=== PATIENT | male | born 1995 ===

== ENCOUNTER 2023-09-27 09:14 | Outpatient (OUT) | payer OTHER, SELFPAY ==
--- NOTE | 2023-09-27 09:17 | XR_ITS ---
The [address] [address] Patient Name: BERTRAM EVANS MRN: [id number] date: 1995 Sex: M Assigned Patient Location: [facility] Current Patient Location: [facility] Accession/Order Number: [id number] Exam Date: 09/27/2023 09:25 Report Date: 09/27/2023 21:39 At the request of: VAISHNAVI DAVIS Procedure: XR elbow LT min 3V EXAM: XR elbow LT min 3V HISTORY: Closed Nondisplaced Fracture Head Radius COMPARISON: 09-17-2023. FINDINGS: 4 radiographs of the left elbow were obtained. No acute fracture or dislocation. Patient is status post internal fixation of the proximal ulna and proximal radius. No evidence for hardware complication. Alignment is unchanged. No elbow joint effusion. Cast material overlies the left elbow and limits fine osseous detail. XR/XR elbow LT min 3V IMPRESSION: Status post internal fixation of the proximal ulna and proximal radius. No evidence for hardware complication. Electronically authenticated by: RADHIKA BANERJEE Date: 09/27/2023 21:39
== END 2023-09-27 09:15 | disposition home or self-care (01) ==
LOC: RAD 09:15
PROVIDERS: Visit Provider Orthopaedic Surgery
DX: S52.125A Nondisplaced fracture of head of left radius, initial encounter for closed fracture (principal); S52.122A Displaced fracture of head of left radius, initial encounter for closed fracture; S52.022A Displaced fracture of olecranon process without intraarticular extension of left ulna, initial encounter for closed fracture
CPT/HCPCS: 73080